=== PATIENT | female | born 1960 | race Caucasian/White ===

== ENCOUNTER 2016-09-07 16:27 | Emergency (ER) | payer MEDICAID ==
[2016-09-07] MEDS ORDERED: Sodium Chloride 0.9% 2,000 ML IV ONE (17:37)
--- NOTE | 2016-09-07 17:45 | ED Physician Chart ---
Chief Complaint/HPI - Patient Information Date Seen:: 09/07/16 Time Seen:: 17:20 Chief Complaint:: diarrhea History of Present Illness:: For last two days patient has had watery diarrhea about 20 minutes. Has intermittent sharp mid and upper abdominal pain. No vomiting. No recent foreign travel. Allergies:: Allergies Allergy/AdvReac Type Severity Reaction Status Date / Time No Known Allergies Allergy Verified 09/07/16 17:02 Vitals:: Vital Signs - 8 hr 09/07/16 16:58 Temp 97.9 F HR 64 RR 16 BP 151/67 O2 Sat % 99 Historian:: Patient Review:: Nurse's Note Reviewed Review of Systems - Review of Systems General/Constitutional: No fever, No chills Skin: No skin lesions Head: No headache ENT: No earache Neck: No neck pain Cardio Vascular: No chest pain Pulmonary: No SOB GI: Diarrhea, Pain G/U: No dysuria, No frequency, No nacturia Musculoskeletal: No bone or joint pain Endocrine: No polyuria, No polydipsia Psychiatric: No prior psych history Past Medical History - Past Medical History Past Medical History: DM, Seizures Family History: Diabetes Melitus Social History: Non Smoker, No Alcohol Surgical History: Appendectomy Psychiatricy History: None Medication: Reviewed Family Medical History - Family Member Mother Hx Family Hypertension: Yes Physical Exam - Physical Examination General/Constitutional: Well-developed, well-nourished, Alert, No distress, GCS 15 Head: Atraumatic Eyes: Lids, conjuctiva normal, PERRL Other Skin comments:: multliple scars on legs ENMT: External ears, nose nl, TM canals nl, Nasal exam nl, Lips, teeth, gums nl , Oropharynx nl, Tonsils nl Neck: No nuchal rigidity Respiratory: Nl effort/Exclusion, Clear to Auscultation Cardio Vascular: RRR Other Cardio Vascular comments:: 2/6 systolic murmur GI: No tenderness/rebounding/guarding, No organomegaly : No CVA tenderness Neuro/Psych: Alert/oriented Misc: Normal back Labs/Radiology/EKG Results - Lab Results Results: Laboratory Results - last 24 hr 09/07/16 09/07/16 17:48 17:48 WBC 9.0 RBC 4.27 Hgb 12.4 Hct 37.0 MCV 86.6 MCH 28.9 MCHC Differential 33.4 RDW 13.8 Plt Count 236 MPV 7.8 Neutrophils % 73.5 Lymphocytes % 15.9 L Monocytes % 5.5 Eosinophils % 4.1 Basophils % 1.0 Carbamazepine 5.9 Laboratory Results - last 24 hr 09/07/16 09/07/16 09/07/16 17:48 17:48 17:48 WBC 9.0 RBC 4.27 Hgb 12.4 Hct 37.0 MCV 86.6 MCH 28.9 MCHC Differential 33.4 RDW 13.8 Plt Count 236 MPV 7.8 Neutrophils % 73.5 Lymphocytes % 15.9 L Monocytes % 5.5 Eosinophils % 4.1 Basophils % 1.0 Sodium 136 Potassium 3.7 Chloride 101 Carbon Dioxide 26.9 Anion Gap 11.8 BUN 16 Creatinine 1.1 Est GFR ( Amer) > 60.0 Est GFR (Non-Af Amer) 55.0 BUN/Creatinine Ratio 14.5 Glucose 105 Calcium 9.1 Magnesium 2.1 Urine Source Urine Color Urine Clarity Urine pH Ur Specific [place] Urine Protein Urine Glucose (UA) Urine Ketones Urine Blood Urine Nitrate Urine Bilirubin Urine Urobilinogen Ur Leukocyte Esterase Carbamazepine 5.9 09/07/16 19:38 WBC RBC Hgb Hct MCV MCH MCHC Differential RDW Plt Count MPV Neutrophils % Lymphocytes % Monocytes % Eosinophils % Basophils % Sodium Potassium Chloride Carbon Dioxide Anion Gap BUN Creatinine Est GFR ( Amer) Est GFR (Non-Af Amer) BUN/Creatinine Ratio Glucose Calcium Magnesium Urine Source CLEAN C Urine Color YELLOW Urine Clarity CLEAR Urine pH 5.5 Ur Specific [place] 1.010 Urine Protein NEGATIVE Urine Glucose (UA) NEGATIVE Urine Ketones NEGATIVE Urine Blood NEGATIVE Urine Nitrate NEGATIVE Urine Bilirubin NEGATIVE Urine Urobilinogen 0.2 Ur Leukocyte Esterase TRACE H Carbamazepine ED Septic Shock - . Is Septic Shock (SBP<90, OR Lactate>4 mmol\L) present?: No - <6hrs of presentation: Vital Signs: Vital Signs - 8 hr 09/07/16 16:58 Temp 97.9 F HR 64 RR 16 BP 151/67 O2 Sat % 99 Reassessment (Disposition) - Reassessment Reassessment Condition:: Improved - Diagnosis Diagnosis:: viral enteritis; diarrhea - Aftercare/Follow up Instructions Aftercare/Follow-Up Instructions:: Refer to Discharge Instructions - Patient Disposition Discharge/Transfer:: Home Condition at Disposition:: Stable, Improved
[2016-09-07 18:00] LABS: % EOSINOPHILS 4.1 % (0.0-5.0); % LYMPHOCYTES 15.9 % (20.0-50.0); % MONOCYTES 5.5 % (2.0-10.0); % NEUTROPHILS 73.5 % (40.0-80.0); HEMOGLOBIN 12.4 gm/dL (11.7-15.5); MEAN CELL VOLUME 86.6 fl (81-100); MEAN CORPUSCULAR HEMOGLOBIN 28.9 pg (27.0-31.0); MEAN CORPUSCULAR HGB CONC 33.4 pg (28.0-36.0); MEAN PLATELET VOLUME 7.8 fl; NEUTROPHILE ABSOLUTE 6.6 Th/cmm (1.8-8.0); PLATELET COUNT 236 Th/cmm (150-400); RED BLOOD COUNT 4.27 Mil/cmm (3.80-5.10); RED CELL DISTRIBUTION WIDTH 13.8 % (11.5-20.0)
[2016-09-07 19:45] LABS: ANION GAP 11.8 (7.0-16.0); BUN - UREA NITROGEN 16 mg/dL (7-25); BUN/CREATININE RATIO 14.5; CALCIUM SERUM 9.1 mg/dL (8.6-10.3); CARBON DIOXIDE 26.9 mEq/L (21.0-31.0); CHLORIDE 101 mEq/L (98-107); CREATININE - SERUM 1.1 mg/dL (0.6-1.2); GLUCOSE 105 mg/dL (70-105); MAGNESIUM 2.1 mg/dL (1.9-2.7); POTASSIUM SERUM 3.7 mEq/L (3.5-5.1); SODIUM SERUM 136 mEq/L (136-145)
[2016-09-07 19:54] LABS: URINE BILIRUBIN NEGATIVE (NEGATIVE); URINE COLOR YELLOW; URINE GLUCOSE (UA) NEGATIVE (NEGATIVE); URINE KETONE NEGATIVE (NEGATIVE)
[2016-09-07 19:55] LABS: URINE BLOOD NEGATIVE (NEGATIVE); URINE PH 5.5; URINE PROTEIN NEGATIVE (NEGATIVE); URINE RBC NONE SEEN /hpf (0-5); URINE UROBILINOGEN 0.2 E.U./dL (0.2 - 1.0)
[2016-09-07 19:56] LABS: URINE BACTERIA NONE SEEN /hpf (NONE SEEN); URINE EPITHELIAL CELLS NONE SEEN /lpf (FEW); URINE WBC 0-2 /hpf (0-5)
== END 2016-09-07 20:20 | disposition home or self-care (01) ==
LOC: ER 16:27
DX: A08.4 Viral intestinal infection, unspecified (principal); E11.9 Type 2 diabetes mellitus without complications
CPT/HCPCS: 36415-UA; 80048-TC; 80156-TC; 81001-TC; 83735-TC; 85025-TC; J7030; Z7502

== ENCOUNTER 2018-03-05 19:48 | Emergency (ER) | payer MEDICAID ==
--- NOTE | 2018-03-05 20:06 | ED Physician Chart ---
ED Chief Complaint/HPI - Patient Information Date Seen:: 03/05/18 Time Seen:: 20:01 Chief Complaint:: Left hand pain History of Present Illness:: 57 yo female with history of right knee pain due to osteoarthritis, tripped and had a ground level fall, landing on left wrist on flexion position 6 hours ago. About 2 hours ago, patient developed significant pain and could not move left wrist. Patient called 911 and was brought from home to ER. Patient denied any loss of consciousness. Allergies:: Allergies Allergy/AdvReac Type Severity Reaction Status Date / Time No Known Allergies Allergy Verified 09/07/16 17:02 Vitals:: Vital Signs - 8 hr 03/05/18 19:50 Temp 99.2 F HR 71 RR 18 BP 123/50 O2 Sat % 96 ED Review of Systems - Review of Systems General/Constitutional: No fever Skin: Rash Head: No headache Eyes: No pain ENT: No nasal drainage Neck: No neck pain Cardio Vascular: No chest pain Pulmonary: No SOB GI: No nausea, No vomiting Musculoskeletal: Bone or joint pain Neurological: No focal symptoms ED Past Medical History - Past Medical History Past Medical History: HTN, DM, Other (Morbid obesity) Social History: Non Smoker, No Alcohol, No Drug Use Surgical History: Appendectomy Family Medical History - Family Member Mother History Unknown: Yes Ethnicity: Non- Hx Family Hypertension: Yes ED Physical Exam - Physical Examination General/Constitutional: Awake, Alert Head: Atraumatic Eyes: PERRL Skin: No ecchymosis ENMT: Nasal exam nl Neck: No nuchal rigidity Respiratory: No Wheeze/Rhonchi/Rales Cardio Vascular: RRR, No murmur, gallop, rubs, NL S1 S2 GI: No tenderness/rebounding/guarding Other Extremities comments:: Left wrist and ulnar side of metacarpal bones tenderness with painful and limited ROM of the wrist. No ecchymosis. Right knee pain with painful ROM. Neuro/Psych: No focal deficits ED Labs/Radiology/EKG Results - Lab Results Results: Laboratory Last Values POC Ur Test Negative 03/05/18 20:18 - Radiology Results Results: Left wrist X ray: no acute fracture Right knee X ray: moderate to severe DJD ED Assessment - Assessment General Assessment: Left wrist contusion Right knee DJD Assessment/Comments:: Left wrist X ray Right knee X ray Toradol 30mg IM Wrap left wrist D/c home Icing for 24 h F/u PCP or return to ER if symptoms worsen ED Septic Shock - . Is Septic Shock (SBP<90, OR Lactate>4 mmol\L) present?: No - <6hrs of presentation: Vital Signs: Vital Signs - 8 hr 03/05/18 19:50 Temp 99.2 F HR 71 RR 18 BP 123/50 O2 Sat % 96 ED Reassessment (Disposition) - Reassessment Reassessment Condition:: Improved - Patient Disposition Discharge/Transfer:: Home
--- NOTE | 2018-03-06 09:17 | Diagnostic Imaging Report ---
Exam: Right wrist joint. HISTORY: Trauma. Findings: Multiple views of the right wrist joint reviewed. The study demonstrates no evidence of fracture or dislocation. The radiocarpal joint is intact. The carpal bones are normal. IMPRESSION: Normal examination right wrist joint.
--- NOTE | 2018-03-06 09:24 | Diagnostic Imaging Report ---
Exam: Right knee joint HISTORY: Pain status post fall. Findings: Multiple views of right knee joint reviewed. The study demonstrates extensive degenerative or osteoarthritic changes with flattening of tibial plateau. Is evidence of spurring and narrowing of the joint space and flattening of tibial plateau. There is no evidence of fracture dislocation or joint effusion. IMPRESSION: degenerative osteoarthritic changes of right knee joint.
== END 2018-03-05 21:25 | disposition home or self-care (01) ==
LOC: ER 19:48
DX: S60.212A Contusion of left wrist, initial encounter (principal); M17.11 Unilateral primary osteoarthritis, right knee; I10 Essential (primary) hypertension; E11.9 Type 2 diabetes mellitus without complications; Z90.49 Acquired absence of other specified parts of digestive tract; W01.0XXA Fall on same level from slipping, tripping and stumbling without subsequent striking against object, initial encounter; Y93.89 Activity, other specified; Y92.89 Other specified places as the place of occurrence of the external cause; Y99.8 Other external cause status
CPT/HCPCS: 99284; 96372; 73110; 73564; 81025; J1885; 73562-TC-RT; Z7502